=== PATIENT | female | born 1980 | race African-American/Black ===

== ENCOUNTER 2019-03-20 12:14 | Emergency (ER) | payer OTHER ==
[~2019-03-20] VITALS: Wt 100.5 kg
[~2019-03-20 12:14] MED LIST: ACET325T33 PO; CIPR500T4 PO; IBUP-1542 PO
[2019-03-20 12:27] VITALS: Wt 100.5 kg
[2019-03-20] MEDS ORDERED: SODIUM CHLORIDE 0.9% 1L BAG IV* STA (12:39)
[2019-03-20] MEDS ORDERED: CEFTRIAXONE 2 GM/50 ML (PMX) 50 ML IVPB STA (12:39)
[2019-03-20] MEDS ORDERED: ACETAMINOPHEN 325 MG TAB PO STA (12:39)
[2019-03-20] MEDS ORDERED: IBUPROFEN 800 MG TAB PO ONE (13:00)
[2019-03-20] MEDS ORDERED: NICOTINE (21 MG/24 HR) PATCH TRANSDERM ONE (16:00)
[2019-03-20 16:45] VITALS: BP 113/64; PULSE 100; RESP 18
== END 2019-03-20 16:59 | disposition home or self-care (01) ==
LOC: E/R 12:14
DX: N12 Tubulo-interstitial nephritis, not specified as acute or chronic (principal); R06.02 Shortness of breath
CPT/HCPCS: 36415; 71045; 74176; 80053; 81001; 81025; 83605; 84484; 85025; 85610; 85730; 87040; 87086; 87400; 93005; 96374; J0696; J7030; Z7502; Z7610